=== PATIENT | male | born 1965 | race African-American/Black ===

== ENCOUNTER 2021-12-31 18:25 | Observation (INO) | payer SELFPAY ==
[2021-12-31] MEDS ORDERED: Dextrose 50% Abboject 50 ML SYRINGE SLOW IVP PRN (20:26)
[2021-12-31] MEDS ORDERED: traMADol HCl 50 MG TAB PO PRN (20:26)
[2021-12-31] MEDS ORDERED: Dextrose 5% in Water 1,000 ML IV PRN (20:26)
[2021-12-31] MEDS ORDERED: hydrALAZINE 20 MG/ML VIAL SLOW IVP PRN (20:27)
[2021-12-31] MEDS ORDERED: Ondansetron PF 4 MG/2 ML Vial IVP PRN (20:27)
[2021-12-31] MEDS ORDERED: Morphine 4 MG/ML VIAL SLOW IVP PRN (20:36)
[2021-12-31] MEDS ORDERED: Cyclobenzaprine 10 MG TAB PO PRN (20:40)
[2021-12-31] MEDS ORDERED: Sodium Chloride 0.9% 1,000 ML IV SCH (20:45)
[2021-12-31] MEDS ORDERED: CEFAZOLIN 2 GM in Sodium Chloride 0.9% 100 ML IVPB SCH (22:00)
[2021-12-31] MEDS: Senokot S 8.6-50 MG TAB PO SCH (22:31)
[2021-12-31] MEDS: traMADol HCl 50 MG TAB PO PRN (22:31)
[2021-12-31] MEDS: Oxazepam 10 MG CAP PO SCH (22:31)
[2021-12-31 22:43] VITALS: BMI 27.8
[2021-12-31] MEDS: Acetaminophen 500 MG TAB PO SCH (23:58)
[2022-01-01] MEDS ORDERED: ceFAZolin 2 GM/Dextrose 50 ML 2 GM in Premix Bag 1 BAG IVPB SCH (02:00)
[2022-01-01 02:16] LABS: SARS-CoV-2 NAA Rapid Test Not Detected (NotDetected)
[2022-01-01 05:39] LABS: Anion Gap 11 mmol/L (10-20); BUN (Urea Nitrogen) 8 mg/dL (8.4-25.7); CK (CPK) 2178 U/L (30-200); Calc. Creatinine Clearance 86 mL/min (70-130); Calcium 8.5 mg/dL (7.8-10.44); Carbon Dioxide 23 mmol/L (22-29); Chloride 105 mmol/L (98-107); Glucose 91 mg/dL (70-105); Magnesium 1.8 mg/dL (1.6-2.6); Phosphorus 3.3 mg/dL (2.3-4.7); Potassium 3.7 mmol/L (3.5-5.1); Sodium 135 mmol/L (136-145)
[2022-01-01] MEDS: CEFAZOLIN 2 GM, Admixture Fee 1 EACH in Sodium Chloride 0.9% 100 ML IVPB SCH ×2 (05:52→14:11)
[2022-01-01] MEDS: Acetaminophen 500 MG TAB PO SCH ×4 (05:53→23:05)
[2022-01-01] MEDS: Oxazepam 10 MG CAP PO SCH ×3 (05:53→21:12)
[2022-01-01 06:29] LABS: Band 3 % (5-11); Eosinophils 6 % (0-10); Lymphocytes 39 % (21-51); MDiff Complete? YES; Mean Corpuscular HGB CONC 32.4 g/dL (32.0-36.0); Mean Corpuscular Volume 95.7 fL (78.0-98.0); Mean Platelet Volume 5.8 fL (7.4-10.4); Monocytes 8 % (0-10); Neutrophil 41 % (42-75); Platelet Count 246 thou/uL (130-400); RBC Distribution Width 10.7 % (11.5-14.5); Red Blood Cell (RBC) Count 4.51 mill/uL (4.70-6.10); White Blood Cell (WBC) Count 3.5 thou/uL (4.8-10.8)
[2022-01-01 06:58] LABS: Amphetamine Detected (NotDetected); Barbiturates Screen Not Detected (NotDetected); Benzodiazepine Screen Detected (NotDetected); Cocaine Metabolite Screen Not Detected (NotDetected); Methadone Not Detected (NotDetected); Methamphetamine Detected (NotDetected); Opiate Screen Detected (NotDetected); Oxycodone Screen Not Detected (NotDetected); Phencyclidine (PCP) Not Detected (NotDetected); THC/Cannabinoid Screen Not Detected (NotDetected); Tricyclic Screen Not Detected (NotDetected)
[2022-01-01 07:53] LABS: Bacteria/HPF Rare-Few HPF (None Seen); Bilirubin Negative (Negative); Blood, Urine Negative (Negative); Clarity Clear (Clear); Glucose, Urine (Dipstick) Normal (Negative); Ketone, Urine Negative (Negative); Leukocyte 25 Leu/uL (Negative); Nitrite Negative (Negative); Protein, Urine (Dipstick) Negative (Neg-Trace); RBC/HPF 0-3 HPF (0-3); Specific Gravity, Urine 1.013 (1.002-1.036); Squamous Epithelial 0-3 HPF (0-3); Urobilinogen Normal mg/dL (Less than 2); pH, Urine 5.5 (5.0-9.0)
[2022-01-01] MEDS ORDERED: PHOS-NAK 1 PKT PACK PO SCH (08:00)
[2022-01-01] MEDS ORDERED: Magnesium 2 GM/50 ML 2 GM in Premix Bag 1 BAG IVPB SCH (08:00)
[2022-01-01] MEDS: Polyethylene Glycol 3350 17 GM Packet PO SCH (08:55)
[2022-01-01] MEDS: Thiamine 100 MG TAB PO SCH (08:55)
[2022-01-01] MEDS: Folic Acid 1 MG TAB PO SCH (08:55)
[2022-01-01] MEDS: Senokot S 8.6-50 MG TAB PO SCH ×2 (08:55→21:12)
[2022-01-01] MEDS: Multivitamin W/ Minerals 1 TAB PO SCH (08:55)
[2022-01-01] MEDS: Sodium Chloride 0.9% 1,000 ML IV SCH ×2 (08:55→14:12)
[2022-01-01] MEDS: traMADol HCl 50 MG TAB PO PRN ×2 (11:58→17:39)
[2022-01-01] MEDS: Cephalexin 250 MG CAP PO SCH ×2 (18:24→23:06)
[2022-01-01] MEDS ORDERED: Enoxaparin Sodium 40 MG/0.4 ML SYRINGE SC SCH (21:00)
[2022-01-02] MEDS: Sodium Chloride 0.9% 1,000 ML IV SCH ×2 (00:49→06:26)
[2022-01-02] MEDS: Acetaminophen 500 MG TAB PO SCH ×2 (05:13→12:45)
[2022-01-02] MEDS: Cephalexin 250 MG CAP PO SCH ×2 (05:14→12:45)
[2022-01-02] MEDS: Oxazepam 10 MG CAP PO SCH (05:14)
[2022-01-02 07:41] LABS: #Eosinphils 0.4 thou/uL (0.0-0.7); #Lymphocytes 1.1 thou/uL (1.20-3.40); #Monocytes 0.6 thou/uL (0.11-0.59); #Neutrophils 3.8 thou/uL (1.40-6.50); %Basophils 0.3 % (0.0-1.0); %Eosinophils 7.1 % (0.0-10.0); %Lymphocytes 17.9 % (21.0-51.0); %Monocytes 10.9 % (0.0-10.0); %Neutrophils 63.9 % (42.0-75.0); Hemoglobin 13.1 g/dL (14.0-18.0); Mean Corpuscular HGB CONC 31.5 g/dL (32.0-36.0); Mean Corpuscular Hemoglobin 30.5 pg (27.0-31.0); Mean Corpuscular Volume 96.7 fL (78.0-98.0); Platelet Count 225 thou/uL (130-400); RBC Distribution Width 10.6 % (11.5-14.5); White Blood Cell (WBC) Count 5.9 thou/uL (4.8-10.8)
[2022-01-02 08:10] LABS: Anion Gap 9 mmol/L (10-20); BUN (Urea Nitrogen) 8 mg/dL (8.4-25.7); Calc. Creatinine Clearance 91 mL/min (70-130); Carbon Dioxide 24 mmol/L (22-29); Chloride 104 mmol/L (98-107); Glucose 85 mg/dL (70-105); Phosphorus 2.2 mg/dL (2.3-4.7); Sodium 133 mmol/L (136-145)
[2022-01-02] MEDS ORDERED: PHOS-NAK 1 PKT PACK PO SCH (08:30)
[2022-01-02] MEDS: Thiamine 100 MG TAB PO SCH (09:25)
[2022-01-02] MEDS: Polyethylene Glycol 3350 17 GM Packet PO SCH (09:25)
[2022-01-02] MEDS: Senokot S 8.6-50 MG TAB PO SCH (09:25)
[2022-01-02] MEDS: Folic Acid 1 MG TAB PO SCH (09:25)
[2022-01-02] MEDS: Multivitamin W/ Minerals 1 TAB PO SCH (09:25)
[2022-01-02 11:23] VITALS: BP 116/74; TEMP 98.4
[2022-01-02] MEDS: traMADol HCl 50 MG TAB PO PRN (14:29)
== END 2022-01-02 15:10 ==
LOC: SURG A 18:25 → EEVIPCON 18:25
PROVIDERS: ADMIT Surgery; ATTEND Surgery
DX: S82.451B Displaced comminuted fracture of shaft of right fibula, initial encounter for open fracture type I or II (principal); S61.216A Laceration without foreign body of right little finger without damage to nail, initial encounter; N17.9 Acute kidney failure, unspecified; M62.82 Rhabdomyolysis; E87.1 Hypo-osmolality and hyponatremia; F10.20 Alcohol dependence, uncomplicated; F12.10 Cannabis abuse, uncomplicated; F17.210 Nicotine dependence, cigarettes, uncomplicated; Z20.822 Contact with and (suspected) exposure to COVID-19; W32.0XXA Accidental handgun discharge, initial encounter; Y90.0 Blood alcohol level of less than 20 mg/100 ml
CPT/HCPCS: 36415; 80048; 80306; 80307; 81001; 82550; 83735; 84100; 85025; 96372; 96374; 96375; 96376; G0378; J0690; J1650; J3475; J3490; J7050; U0002